=== PATIENT | male | born 1975 | race African-American/Black ===

== ENCOUNTER 2021-03-11 10:38 | Emergency (ER) | payer OTHER ==
[~2021-03-11] VITALS: Ht 188 cm; Wt 95.3 kg
[2021-03-11 10:54] VITALS: BP 143/58
[2021-03-11] MEDS ORDERED: CEPHALEXIN 250250 M1 PO (11:33)
[2021-03-11] MEDS ORDERED: MUPIROCIN15 GM TOP (11:33)
== END 2021-03-11 12:00 | disposition home or self-care (01) ==
LOC: ER 10:38
DX: L01.00 Impetigo, unspecified (principal); F17.200 Nicotine dependence, unspecified, uncomplicated; F12.90 Cannabis use, unspecified, uncomplicated